=== PATIENT | female | born 1990 | race Caucasian/White ===

== ENCOUNTER 2018-05-16 13:59 | Emergency (ER) | payer OTHER ==
[2018-05-16 15:00] LABS: ADD UMIC YES; UR ASCORBIC ACID NEGATIVE (NEGATIVE); UR BACTERIA FEW /HPF (NONE SEEN); UR BILIRUBIN (Dip) NEGATIVE (NEGATIVE); UR BLOOD (Dip) 1+ mg/dL (NEGATIVE); UR CLARITY CLEAR (CLEAR); UR COLOR YELLOW (YELLOW); UR GLUCOSE (Dip) NEGATIVE (NEGATIVE); UR KETONES (Dip) NEGATIVE (NEGATIVE); UR LEUKOCYTE ESTERASE (Dip) TRACE Leu/ul (NEGATIVE); UR NITRITE (Dip) NEGATIVE (NEGATIVE); UR RBC 0 /HPF (0-5); UR SPECIFIC GRAVITY (Dip) 1.017 (1.003-1.030); UR SQUAMOUS EPITHELIAL CELL FEW /HPF (FEW); UR TOTAL PROTEIN (Dip) NEGATIVE (NEGATIVE); UR UROBILINOGEN (Dip) NEGATIVE (NEGATIVE); UR WBC 10 /HPF (0-5)
[2018-05-16] MEDS: CEFTRIAXONE 250 MG INJ IM (15:55)
[2018-05-16] MEDS: AZITHROMYCIN 250 MG TAB PO (15:55)
[2018-05-16] MEDS: LIDOCAINE 1% (MDV) 20 ML INJ SC (15:55)
[2018-05-16] MEDS: VALACYCLOVIR 500 MG TAB PO (16:02)
[2018-05-16 17:01] LABS: HEPATITIS B SURFACE ANTIGEN NEGATIVE (NEGATIVE)
[2018-05-16 17:18] LABS: HEPATITIS C VIRAL ANTIBODY NEGATIVE (NEGATIVE); HIV 1&2 ANTIBODY NEGATIVE (NEGATIVE)
[2018-05-16 17:19] LABS: HEPATITIS B SURFACE ANTIBODY POSITIVE (NEGATIVE)
[2018-05-17 20:49] LABS: RAPID PLASMA REAGIN NONREACTIVE (NR)
== END 2018-05-16 17:46 | disposition home or self-care (01) ==
LOC: FTE 13:59
DX: N76.0 Acute vaginitis (principal)
CPT/HCPCS: 81001; 81025; 86592; 86703; 86706; 86803; 87210; 87340; 87591; 96372; 99284-25

== ENCOUNTER 2018-08-23 15:28 | Emergency (ER) | payer OTHER ==
[2018-08-23] MEDS: ACETAMINOPHEN 500 MG TAB PO (18:43)
== END 2018-08-23 19:46 | disposition home or self-care (01) ==
LOC: FTE 15:28
DX: B34.9 Viral infection, unspecified (principal)
CPT/HCPCS: 71045; 87400; 99284-25